=== PATIENT | female | born 2000 | race African-American/Black ===

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

== ENCOUNTER 2019-08-13 12:27 | Emergency (ER) | payer OTHER, SELFPAY ==
[2019-08-13 13:01] LABS: Urine Blood NEGATIVE (NEG); Urine Glucose NEGATIVE (NEG); Urine Protein NEGATIVE (NEG); Urine Specific Gravity 1.025 (1.005-1.030); Urine pH 5.5 (5.0-7.0)
[2019-08-13 14:18] LABS: Absolute Lymphocytes (CBC) 1.5 K/uL (0.7-4.9); Basophils % 0.5 % (0-1.3); Hematocrit 37.4 % (36.0-45.0); Lymphocytes % 28.9 % (15.3-44.8); MPV 9.2 fL (7.6-11.3)
[2019-08-13 14:57] LABS: BUN Blood Urea Nitrogen 9 mg/dL (7-18); Bicarbonate 25 mmol/L (21-32); Glucose Level 79 mg/dL (74-106); HCG, Quantitative 6473 mIU/mL (1-3); Sodium Level 139 mmol/L (136-145)
--- NOTE | 2019-08-13 15:33 | RAD REPORT ---
EXAM DESCRIPTION: US - Transvaginal OB - 08/13/2019 3:01 pm CLINICAL HISTORY: ABD PAIN, left-sided pelvic pain, positive study COMPARISON: No comparisons TECHNIQUE: Endovaginal sonography performed. FINDINGS: A normal shaped oval sac or fluid collection is seen in the fundal portion of the endometr ial cavity. If this is a gestational sac, no pole seen. No yolk sac confirmed. Size of the pres umed gestational sac would correspond to a 6 week 5 day . No hematoma or focal abnormality w ithin the endometrial cavity. No myometrial mass. Uterine size is normal. A 2.4 centimeter heterogeneous mixed echogenicity mass within the right ovary is probably a hemorrhag ic cyst. An aggressive ovarian process would not be suspected based on age in the clinical setting. N o right adnexal mass. Left ovary is normal in appearance. No left adnexal abnormality. Anechoic fluid is present in the cul de sac. IMPRESSION: A 6 week 5 day sized gestational sac is seen in the fundal uterus. No pole or yolk sac identified. No suspicious adnexal finding to suspect ectopic . Blighted ovum would be favored. Correlation can be made with serial HCG values to evaluate for possib le ongoing .
--- NOTE | 2019-08-13 15:55 | ER ---
Nurse's Notes [facility] Name: Gosia Casas Age: 18 yrs Sex: Female : 2000 Arrival Date: 08/13/2019 Time: 12:29 Bed 17 Private MD: Diagnosis: Abdominal and pelvic pain;Threatened Presentation: 08/12 12:32 Chief complaint: Patient states: reports yesterday she had sexual intercourse and sv started having LLQ pain, went to the center today and they told her to come get checked out for a tubal . Denies vaginal bleeding. Pt is 5 weeks 2 days . Coronavirus screen: Patient denies a cough. Patient denies shortness of breath or difficulty breathing. Patient denies measured and/or subjective temperature greater than 100.4F prior to today's visit. Patient denies travel on a cruise ship or to a country the [facility] currently lists as an affected area. Patient denies contact with known and/or suspected case of COVID-19. Ebola Screen: No symptoms or risks identified at this time. Risk Assessment: Do you want to hurt yourself or someone else? Patient reports no desire to harm self or others. Onset of symptoms was August 13, 2019. 12:32 Method Of Arrival: Ambulatory sv 12:32 Acuity: LEIGHA 3 sv 13:25 Initial Sepsis Screen: Does the patient meet any 2 criteria? No. Patient's initial ca1 sepsis screen is negative. Does the patient have a suspected source of infection? No. Patient's initial sepsis screen is negative. 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 - Social history:: Smoking status: Patient denies any tobacco usage or history of. Screenin:25 Abuse screen: Denies threats or abuse. Denies injuries from another. Nutritional ca1 screening: No deficits noted. Tuberculosis screening: No symptoms or risk factors identified. Fall Risk IV access (20 points). Assessment: 13:25 General: Appears in no apparent distress. comfortable, Behavior is calm, cooperative, ca1 appropriate for age. Pain: Complains of pain in left lower quadrant Pain does not radiate. Pain currently is 0 out of 10 on a pain scale. Pain began 1 day ago. Is intermittent. Neuro: Level of Consciousness is awake, alert, obeys commands, Oriented to person, place, time, situation. Cardiovascular: Heart tones S1 S2 present Capillary refill < 3 seconds Patient's skin is warm and dry. Respiratory: Airway is patent Respiratory effort is even, unlabored, Respiratory pattern is regular, symmetrical, Breath sounds are clear bilaterally. GI: Abdomen is round non-distended, Bowel sounds present X 4 quads. Abd is soft X 4 quads Abdomen is tender to palpation in left lower quadrant. : No signs and/or symptoms were reported regarding the genitourinary system. EENT: No signs and/or symptoms were reported regarding the EENT system. Derm: Skin is intact, is healthy with good turgor, Skin is. Musculoskeletal: Circulation, motion, and sensation intact. Capillary refill < 3 seconds. 14:42 Reassessment: Patient appears in no apparent distress at this time. No changes from ca1 previously documented assessment. Patient and/or family updated on plan of care and expected duration. Pain level reassessed. Patient is alert, oriented x 3, equal unlabored respirations, skin warm/dry/pink. 15:50 Reassessment: Patient appears in no apparent distress at this time. Patient is alert, ca1 oriented x 3, equal unlabored respirations, skin warm/dry/pink. Vital Signs: 12:34 BP 133 / 80; Pulse 63; Resp 16; Temp 98.7; Pulse Ox 100% ; Weight 72.12 kg; Height 5 sv ft. 8 in. (172.72 cm); 14:05 BP 130 / 69; Pulse 64; Resp 15 S; Pulse Ox 100% on R/A; ca1 14:42 BP 137 / 78; Pulse 72; Resp 17 S; Pulse Ox 100% on R/A; ca1 15:50 BP 111 / 55; Pulse 75; Resp 16 S; Pulse Ox 100% on R/A; ca1 12:34 Body Mass Index 24.18 (72.12 kg, 172.72 cm) sv ED Course: 12:29 Patient arrived in ED. ag5 12:33 Triage completed. sv 12:34 Arm band placed on. sv 13:18 Trung Thompson MD is Attending Physician. kdr 13:25 Patient has correct armband on for positive identification. Placed in gown. Bed in low ca1 position. Call light in reach. Side rails up X 1. Pulse ox on. NIBP on. Warm blanket given. 13:42 Lulu Moreira RN is Primary Nurse. ca1 13:55 Inserted Missed attempt(s): 20 gauge in right antecubital area. dh4 13:55 Inserted saline lock: 20 gauge in left antecubital area, using aseptic technique. dh4 15:01 US Transvaginal Ob In Process Unspecified. EDMS 16:19 No provider procedures requiring assistance completed. IV discontinued, intact, ca1 bleeding controlled, No redness/swelling at site. Pressure dressing applied. Administered Medications: No medications were administered Outcome: 15:54 Discharge ordered by . kdr 16:19 Discharged to home ambulatory. ca1 16:19 Condition: stable 16:19 Discharge instructions given to patient, Instructed on discharge instructions, follow up and referral plans. Demonstrated understanding of instructions, follow-up care. 16:28 Patient left the ED. ca1 Signatures: Dispatcher [employer] [facility]TN Jessenia Dawkins RN RN Trung Thompson MD MD [facility] Lulu Moreira RN RN ca1 Ángel Garcia Chris Jimenes 4 Corrections: (The following items were deleted from the chart) 14:05 13:25 Pain: Complains of pain in left lower quadrant ca1 ca1
--- NOTE | 2019-08-13 15:55 | EDPHYS ---
Physician Documentation [facility] Name: Gosia Casas Age: 18 yrs Sex: Female : 2000 Arrival Date: 08/13/2019 Time: 12:29 Bed 17 Private MD: ED Physician Trung Thompson HPI: 08/13 11:18 This 18 yrs old Black Female presents to ER via Ambulatory with complaints of Side kdr Pain, 5 wks Preg. 11:18 The patient presents with abdominal pain in the left lower quadrant. Onset: The kdr symptoms/episode began/occurred suddenly, yesterday. The symptoms do not radiate. Associated signs and symptoms: none. The symptoms are described as achy, crampy, vague. Modifying factors: The symptoms are alleviated by nothing, the symptoms are aggravated by [place]. Severity of pain: At its worst the pain was mild in the emergency department the pain has improved moderately. The patient has not experienced similar symptoms in the past. The patient has not recently seen a physician. 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 - Social history:: Smoking status: Patient denies any tobacco usage or history of. ROS: 08/13 11:18 Constitutional: Negative for fever, chills, and weight loss, Eyes: Negative for injury, kdr pain, redness, and discharge, ENT: Negative for injury, pain, and discharge, Neck: Negative for injury, pain, and swelling, Cardiovascular: Negative for chest pain, palpitations, and edema, Respiratory: Negative for shortness of breath, cough, wheezing, and pleuritic chest pain, Back: Negative for injury and pain, : Negative for injury, bleeding, discharge, and swelling, MS/Extremity: Negative for injury and deformity, Skin: Negative for injury, rash, and discoloration, Neuro: Negative for headache, weakness, numbness, tingling, and seizure activity. Psych: Negative for depression, anxiety, suicide ideation, homicidal ideation, and hallucinations, Allergy/Immunology: Negative for hives, rash, and allergies, Endocrine: Negative for neck swelling, polydipsia, polyuria, polyphagia, and marked weight changes, Hematologic/Lymphatic: Negative for swollen nodes, abnormal bleeding, and unusual bruising. Abdomen/GI: Positive for abdominal pain, nausea, Negative for black/tarry stool, rectal pain, rectal bleeding, bowel incontinence, flatulence. Exam: 11:18 Constitutional: This is a well developed, well nourished patient who is awake, alert, kdr and in no acute distress. Head/Face: Normocephalic, atraumatic. Eyes: Pupils equal round and reactive to light, extra-ocular motions intact. Lids and lashes normal. Conjunctiva and sclera are non-icteric and not injected. Cornea within normal limits. Periorbital areas with no swelling, redness, or edema. Neck: Trachea midline, no thyromegaly or masses palpated, and no cervical lymphadenopathy. Supple, full range of motion without nuchal rigidity, or vertebral point tenderness. No Meningismus. Chest/axilla: Normal chest wall appearance and motion. Nontender with no deformity. No lesions are appreciated. Cardiovascular: Regular rate and rhythm with a normal S1 and S2. No gallops, murmurs, or rubs. Normal PMI, no JVD. No pulse deficits. Respiratory: Lungs have equal breath sounds bilaterally, clear to auscultation and percussion. No rales, rhonchi or wheezes noted. No increased work of breathing, no retractions or nasal flaring. Back: No spinal tenderness. No costovertebral tenderness. Full range of motion. Skin: Warm, dry with normal turgor. Normal color with no rashes, no lesions, and no evidence of cellulitis. MS/ Extremity: Pulses equal, no cyanosis. Neurovascular intact. Full, normal range of motion. Neuro: Awake and alert, GCS 15, oriented to person, place, time, and situation. Cranial nerves II-XII grossly intact. Motor strength 5/5 in all extremities. Sensory grossly intact. Cerebellar exam normal. Normal gait. Psych: Awake, alert, with orientation to person, place and time. Behavior, mood, and affect are within normal limits. 11:18 Abdomen/GI: Inspection: abdomen appears normal, Bowel sounds: active, all quadrants, Palpation: soft, mild abdominal tenderness, in the left lower quadrant, mass, is not appreciated, rebound tenderness, is not appreciated. Vital Signs: 08/12 12:34 BP 133 / 80; Pulse 63; Resp 16; Temp 98.7; Pulse Ox 100% ; Weight 72.12 kg; Height 5 sv ft. 8 in. (172.72 cm); 14:05 BP 130 / 69; Pulse 64; Resp 15 S; Pulse Ox 100% on R/A; ca1 14:42 BP 137 / 78; Pulse 72; Resp 17 S; Pulse Ox 100% on R/A; ca1 15:50 BP 111 / 55; Pulse 75; Resp 16 S; Pulse Ox 100% on R/A; ca1 12:34 Body Mass Index 24.18 (72.12 kg, 172.72 cm) sv MDM: 15:54 Patient medically screened. kdr 08/13 11:18 Data reviewed: vital signs, nurses notes, lab test result(s), radiologic studies. kdr Counseling: I had a detailed discussion with the patient and/or guardian regarding: the historical points, exam findings, and any diagnostic results supporting the discharge/admit diagnosis, lab results, radiology results, the need for outpatient follow up. 08/12 12:51 Order name: Urine Dipstick--Ancillary (enter results); Complete Time: 13:20 em1 08/12 12:51 Order name: Urine --Ancillary (enter results); Complete Time: 13:20 em1 08/12 13:20 Order name: Quantitative Hcg; Complete Time: 15:52 kdr 08/12 13:20 Order name: Abo/rh Typing; Complete Time: 15:52 kdr 08/12 13:20 Order name: Basic Metabolic Panel; Complete Time: 15:52 kdr 08/12 13:20 Order name: CBC with Diff; Complete Time: 15:52 kdr 08/12 12:54 Order name: US Transvaginal Ob; Complete Time: 15:52 sv 08/12 13:20 Order name: IV Saline Lock; Complete Time: 13:55 kdr 08/12 13:20 Order name: Labs collected and sent; Complete Time: 13:55 kdr 08/12 13:20 Order name: NPO; Complete Time: 13:55 kdr 08/12 13:20 Order name: Urine Dipstick-Ancillary (obtain specimen); Complete Time: 13:29 kdr 08/12 15:10 Order name: Labs - recollect needed: collect abo/rh no charge; Complete Time: 15:37 bd 08/12 15:50 Order name: ABO/RH no charge; Complete Time: 15:52 EDMS Administered Medications: No medications were administered Disposition: 08/13/19 15:54 Discharged to Home. Impression: Abdominal and pelvic pain, Threatened . - Condition is Stable. - Discharge Instructions: Abdominal Pain, Adult, [id number], Threatened Miscarriage, [id number]. - Medication Reconciliation Form, Thank You Letter form. - Follow up: Private Physician; When: 2 - 3 days; Reason: If symptoms return, Further diagnostic work-up, Recheck today's complaints, Continuance of care, Re-evaluation by your physician. - Problem is new. - Symptoms have improved. Signatures: Dispatcher [employer] EDMS penelope DebbieJessenia Esparza RN RN sv Trung Thompson MD MD kdr Lillie, MYLENE Lawson RN ca1 Corrections: (The following items were deleted from the chart) 08/12 16:28 15:54 08/13/2019 15:54 Discharged to Home. Impression: Abdominal and pelvic pain; ca1 Threatened . Condition is Stable. Forms are Medication Reconciliation Form, Thank You Letter, Antibiotic Education, Prescription Opioid Use. Follow up: Private Physician; When: 2 - 3 days; Reason: If symptoms return, Further diagnostic work-up, Recheck today's complaints, Continuance of care, Re-evaluation by your physician. Problem is new. Symptoms have improved. kdr
[2019-08-13 16:34] VITALS: TEMP 98.7; O2SAT 100
[2019-08-13 16:38] VITALS: BP 111/55
== END 2019-08-13 16:28 | disposition home or self-care (01) ==
LOC: ER 12:27
DX: O20.0 Threatened abortion (principal); Z3A.01 Less than 8 weeks gestation of pregnancy
CPT/HCPCS: 36415; 76817; 80048; 81003; 81025; 84702; 85025; 86900; 86901; 99284

== ENCOUNTER 2019-10-12 00:01 | Emergency (ER) | payer OTHER ==
[2019-10-12 00:59] LABS: Urine Blood 3+ (NEG); Urine Glucose NEGATIVE (NEG); Urine Protein 2+ (NEG); Urine Specific Gravity 1.025 (1.005-1.030)
[2019-10-12 01:01] LABS: Basophils % 0.5 % (0-1.3); Hematocrit 35.8 % (36.0-45.0); Lymphocytes % 27.7 % (15.3-44.8); RBC Red Blood Cell Count 4.04 M/uL (3.86-4.86)
[2019-10-12 01:16] LABS: Urine Amorphous Sediment 2+ /HPF (NONE SEEN); Urine Bacteria >50 /HPF (<20); Urine Culture Reflex Order NOT NEEDED; Urine Mucus 2+ /HPF (NONE SEEN)
[2019-10-12 01:30] LABS: BUN Blood Urea Nitrogen 14 mg/dL (7-18); Bicarbonate 25 mmol/L (21-32); Glucose Level 87 mg/dL (74-106); HCG, Quantitative 21194 mIU/mL (1-3); Potassium 3.7 mmol/L (3.5-5.1); Sodium Level 139 mmol/L (136-145)
--- NOTE | 2019-10-12 01:53 | ER ---
Nurse's Notes [facility] Name: Gosia Casas Age: 18 yrs Sex: Female : 2000 Arrival Date: 10/12/2019 Time: 00:05 Bed 19 Private MD: Diagnosis: Urinary tract infection, site not specified; state Presentation: 10/11 00:23 Chief complaint: Patient states: she is 3 months went to the bathroom about 10 bb minutes ago and noticed some brownish blood in her urine denies abdominal pain and states she has had no other difficulties with her . Coronavirus screen: At this time, the client does not indicate any symptoms associated with coronavirus-19. Ebola Screen: No symptoms or risks identified at this time. Initial Sepsis Screen: Does the patient meet any 2 criteria? No. Patient's initial sepsis screen is negative. Does the patient have a suspected source of infection? No. Patient's initial sepsis screen is negative. Risk Assessment: Do you want to hurt yourself or someone else? Patient reports no desire to harm self or others. Onset of symptoms was October 12, 2019. 00:23 Method Of Arrival: Ambulatory bb 00:23 Acuity: LEIGHA 3 bb Triage Assessment: 00:26 General: Appears in no apparent distress. Behavior is calm, cooperative. Pain: Denies bb pain. 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 - Social history:: Smoking status: Patient denies any tobacco usage or history of. Screenin:31 Abuse screen: Denies threats or abuse. Denies injuries from another. Nutritional wh screening: No deficits noted. Tuberculosis screening: No symptoms or risk factors identified. Fall Risk None identified. Assessment: 00:30 General: Appears in no apparent distress. Behavior is calm, cooperative, appropriate for age. Pain: Denies pain. Neuro: Level of Consciousness is awake, alert, obeys commands, Oriented to person, place, time, situation, Appropriate for age. Cardiovascular: Capillary refill < 3 seconds. Respiratory: Airway is patent Respiratory effort is even, unlabored, Respiratory pattern is regular, symmetrical. GI: Abdomen is flat, non-distended. : Reports discharge, brownish urine. EENT: No signs and/or symptoms were reported regarding the EENT system. Derm: Skin is intact, is healthy with good turgor, Skin is pink, warm \T\ dry. normal. Musculoskeletal: Circulation, motion, and sensation intact. 01:15 Reassessment: Patient appears in no apparent distress at this time. No changes from previously documented assessment. Patient and/or family updated on plan of care and expected duration. Pain level reassessed. Patient is alert, oriented x 3, equal unlabored respirations, skin warm/dry/pink. 02:06 Reassessment: Patient appears in no apparent distress at this time. No changes from previously documented assessment. Patient and/or family updated on plan of care and expected duration. Pain level reassessed. Patient is alert, oriented x 3, equal unlabored respirations, skin warm/dry/pink. Vital Signs: 00:23 BP 129 / 78; Pulse 69; Resp 14 S; Temp 98.6(O); Pulse Ox 100% on R/A; Weight 73.48 kg bb (R); Height 5 ft. 8 in. (172.72 cm) (R); Pain 0/10; 01:15 BP 133 / 82; Pulse 73; Resp 18; Pulse Ox 100% on R/A; 02:06 BP 116 / 78; Pulse 71; Resp 18; Pulse Ox 100% on R/A; 00:23 Body Mass Index 24.63 (73.48 kg, 172.72 cm) Vitals: 01:15 Heart Tones 164 . ED Course: 00:05 Patient arrived in ED. ag3 00:15 Long Johnson is Primary Nurse. wh 00:17 Kanu Weems PA is PHCP. cp 00:17 Jorge Arango MD is Attending Physician. cp 00:25 Triage completed. bb 00:26 Arm band placed on Patient placed in an exam room, on a stretcher, on pulse oximetry. bb 00:31 Patient has correct armband on for positive identification. Placed in gown. Bed in low position. Call light in reach. Side rails up X 1. Pulse ox on. NIBP on. 00:45 Inserted saline lock: 20 gauge in right antecubital area, using aseptic technique. Blood collected. 02:08 No provider procedures requiring assistance completed. IV discontinued, intact, bleeding controlled, No redness/swelling at site. Administered Medications: No medications were administered Outcome: 01:52 Discharge ordered by . karin 02:08 Discharged to home ambulatory. 02:08 Condition: stable 02:08 Discharge instructions given to patient, Instructed on discharge instructions, follow up and referral plans. medication usage, POC Demonstrated understanding of instructions, follow-up care, medications, POC Prescriptions given X 1. 02:08 Patient left the ED. Signatures: Margie Lipscomb RN RN Kanu Brenner PA PA cp [place], Winsy Renuka Griffith ag3
--- NOTE | 2019-10-12 01:53 | EDPHYS ---
Physician Documentation [facility] [place] Name: Gosia Casas Age: 18 yrs Sex: Female : 2000 Arrival Date: 10/12/2019 Time: 00:05 Bed 19 Private MD: ED Physician Jorge Arango HPI: 10/11 00:45 This 18 yrs old Black Female presents to ER via Ambulatory with complaints of Vaginal cp Discharge. 00:45 The patient presents with urinary symptoms, brownish discharge in urine. Onset: The cp symptoms/episode began/occurred today. Associated signs and symptoms: Pertinent negatives: constipation, diarrhea, dysuria, fever, vaginal bleeding, vaginal discharge. Severity of symptoms: in the emergency department the symptoms are unchanged. The patient is sexually active, reportedly has a single partner. The patient's method of control includes nothing. 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 - Social history:: Smoking status: Patient denies any tobacco usage or history of. ROS: 00:50 Constitutional: Negative for body aches, chills, fever, poor PO intake. cp 00:50 Respiratory: Negative for cough, shortness of breath, wheezing. cp 00:50 Abdomen/GI: Negative for abdominal pain, nausea, vomiting, and diarrhea, diarrhea, constipation, black/tarry stool, rectal bleeding. 00:50 : Positive for brown colored discharge, Negative for pelvic pain, flank pain, burning with urination, vaginal bleeding, vaginal discharge. 00:50 Skin: Negative for rash. 00:50 Neuro: Negative for headache. 00:50 All other systems are negative. Exam: 00:55 Constitutional: The patient appears in no acute distress, alert, awake, comfortable, cp non-toxic, well developed, well nourished. 00:55 Head/Face: Normocephalic, atraumatic. cp 00:55 Eyes: Periorbital structures: appear normal, Conjunctiva: normal, no exudate, no injection, Sclera: no appreciated abnormality, Lids and lashes: appear normal, bilaterally. 00:55 ENT: External ear(s): are unremarkable, Nose: is normal, Mouth: Lips: moist, Oral mucosa: moist, Posterior pharynx: Airway: no evidence of obstruction, patent. 00:55 Chest/axilla: Inspection: normal. 00:55 Cardiovascular: Rate: normal. 00:55 Respiratory: the patient does not display signs of respiratory distress, Respirations: normal. 00:55 Abdomen/GI: Inspection: gravid appearance, is noted, Bowel sounds: active, all quadrants, Palpation: abdomen is soft and non-tender, in all quadrants. 00:55 Back: pain, is absent, ROM is normal. 01:45 : Pelvic Exam: The exam is refused by the patient/guardian. The risks and cp consequences are understood by the patient. Vital Signs: 00:23 BP 129 / 78; Pulse 69; Resp 14 S; Temp 98.6(O); Pulse Ox 100% on R/A; Weight 73.48 kg bb (R); Height 5 ft. 8 in. (172.72 cm) (R); Pain 0/10; 01:15 BP 133 / 82; Pulse 73; Resp 18; Pulse Ox 100% on R/A; wh 02:06 BP 116 / 78; Pulse 71; Resp 18; Pulse Ox 100% on R/A; wh 00:23 Body Mass Index 24.63 (73.48 kg, 172.72 cm) bb MDM: 00:28 Patient medically screened. cp 01:00 Differential diagnosis: pelvic inflammatory disease, urinary tract infection, vaginosis.cp 01:50 Data reviewed: vital signs, nurses notes, lab test result(s). cp 01:50 Counseling: I had a detailed discussion with the patient and/or guardian regarding: the cp historical points, exam findings, and any diagnostic results supporting the discharge/admit diagnosis, lab results, the need for outpatient follow up, an OB/Gyne specialist, to return to the emergency department if symptoms worsen or persist or if there are any questions or concerns that arise at home. ED course: Review of records shows patient had US in August 2019 that showed IUP. 10/11 00:40 Order name: Quantitative Hcg; Complete Time: 01:37 cp 10/11 01:38 Interpretation: Reviewed. cp 10/11 00:40 Order name: Abo/rh Typing; Complete Time: 01:13 cp 10/11 00:40 Order name: Basic Metabolic Panel; Complete Time: 01:37 cp 10/11 01:38 Interpretation: Normal except: CL 109. cp 10/11 00:40 Order name: CBC with Diff; Complete Time: 01:13 cp 10/11 00:40 Order name: Urine Microscopic Only; Complete Time: 01:37 cp 10/11 01:38 Interpretation: Normal except: UWBC 10-20; URBC 10-20; UBACT >50; SQEPI 10-20; AMORPH cp 2+. 10/11 00:40 Order name: Urine Culture cp 10/11 00:40 Order name: Urine Test (obtain specimen); Complete Time: 00:52 cp 10/11 00:40 Order name: IV Saline Lock; Complete Time: 00:52 cp 10/11 00:40 Order name: Labs collected and sent; Complete Time: 00:52 cp 10/11 00:40 Order name: NPO; Complete Time: 00:52 cp 10/11 00:40 Order name: Urine Dipstick-Ancillary (obtain specimen); Complete Time: 00:52 cp 10/11 00:49 Order name: Urine --Ancillary (enter results); Complete Time: 01:13 tt3 10/11 00:49 Order name: Urine Dipstick--Ancillary (enter results); Complete Time: 01:13 tt3 10/11 00:58 Order name: Heart Tones; Complete Time: 01:14 cp Administered Medications: No medications were administered Disposition: 02:15 Chart complete. cp Disposition: 10/12/19 01:52 Discharged to Home. Impression: Urinary tract infection, site not specified, state. - Condition is Stable. - Discharge Instructions: and Urinary Tract Infection. - Prescriptions for Macrobid 100 mg Oral Capsule - take 1 capsule by ORAL route every 12 hours for 7 days; 14 capsule. - Medication Reconciliation Form, Thank You Letter, Antibiotic Education, Prescription Opioid Use form. - Follow up: Private Physician; When: 1 - 2 days; Reason: Worsening of condition. - Problem is new. - Symptoms have improved. Addendum: 10/13/2019 04:30 Co-signature as Attending Physician, Jorge Arango MD I agree with the assessment and t w4 plan of care. Signatures: Dispatcher [employer] EDMargie Gomez, RN RN Kanu Brenner PA PA [place] Jorge Arango MD MD tw4 Corrections: (The following items were deleted from the chart) 10/11 01:53 01:52 10/12/2019 01:52 Discharged to Home. Impression: Urinary tract infection, site cp not specified. Condition is Stable. Forms are Medication Reconciliation Form, Thank You Letter, Antibiotic Education, Prescription Opioid Use. Follow up: Private Physician; When: 1 - 2 days; Reason: Worsening of condition. Problem is new. Symptoms have improved. cp 02:08 01:53 10/12/2019 01:52 Discharged to Home. Impression: Urinary tract infection, site wh not specified; state. Condition is Stable. Discharge Instructions: and Urinary Tract Infection. Forms are Medication Reconciliation Form, Thank You Letter, Antibiotic Education, Prescription Opioid Use. Follow up: Private Physician; When: 1 - 2 days; Reason: Worsening of condition. Problem is new. Symptoms have improved. cp
[2019-10-12 07:40] VITALS: BP 116/78; TEMP 98.6; O2SAT 100
== END 2019-10-12 02:08 | disposition home or self-care (01) ==
LOC: ER 00:01
DX: O23.41 Unspecified infection of urinary tract in pregnancy, first trimester (principal); Z3A.13 13 weeks gestation of pregnancy
CPT/HCPCS: 36415; 80048; 81003; 81015; 81025; 84702; 85025; 86900; 86901; 87086; 87088; 99284

== ENCOUNTER 2019-10-12 13:04 | Emergency (ER) | payer OTHER ==
--- NOTE | 2019-10-12 15:55 | EDPHYS ---
Physician Documentation [facility] Name: Gosia Casas Age: 18 yrs Sex: Female : 2000 Arrival Date: 10/12/2019 Time: 13:08 Bed 24 Private MD: ED Physician Ren Martinez HPI: 10/11 15:52 This 18 yrs old Black Female presents to ER via Ambulatory with complaints of Vaginal pm1 Bleeding, 3 MTHS PREG. 15:52 The patient presents with vaginal bleeding that is light, reports using 0 pads or pm1 tampons per day, blood present with wiping after urination. Onset: The symptoms/episode began/occurred today. Modifying factors: The symptoms are alleviated by nothing, the symptoms are aggravated by urinating. Associated signs and symptoms: Pertinent positives: vaginal bleeding, Pertinent negatives: dysuria, fever, abdominal pain, flank pain, n/v/d. Severity of symptoms: in the emergency department the symptoms are unchanged. The patient is sexually active. The patient has not experienced similar symptoms in the past. The patient has been recently seen at the [facility] Emergency Department, today, for similar complaints diagnosed with UTI and discharge home with abx. PATIENT SITTER: 15:52 1, Full Term 0, Living 0 pm1 Historical: - Allergies: 13:20 No Known Allergies; ll1 - PSHx: 13:20 None; ll1 - Immunization history:: Flu vaccine is not up to date. - Social history:: Smoking status: Patient denies any tobacco usage or history of. Patient/guardian denies using alcohol, street drugs, IV drugs. ROS: 15:52 Positive for vaginal bleeding, Negative for urinary symptoms. pm1 15:52 Constitutional: Negative for fever, chills, and weight loss, Cardiovascular: Negative for chest pain, palpitations, and edema, Respiratory: Negative for shortness of breath, cough, wheezing, and pleuritic chest pain, Abdomen/GI: Negative for abdominal pain, nausea, vomiting, diarrhea, and constipation, Back: Negative for injury and pain, MS/Extremity: Negative for injury and deformity, Skin: Negative for injury, rash, and discoloration, Neuro: Negative for headache, weakness, numbness, tingling, and seizure. Exam: 15:52 Constitutional: This is a well developed, well nourished patient who is awake, alert, pm1 and in no acute distress. Head/Face: Normocephalic, atraumatic. 15:52 Cardiovascular: Exam negative for acute changes, Rate: normal, Rhythm: regular, Pulses: no pulse deficits are appreciated, Edema: is not appreciated. 15:52 Respiratory: Exam negative for acute changes, respiratory distress, shortness of breath. 15:52 Abdomen/GI: Exam negative for acute changes, Inspection: abdomen appears normal, Palpation: abdomen is soft and non-tender, in all quadrants. 15:52 Back: Exam negative for acute changes, pain, is absent, ROM is normal. 15:52 MS/ Extremity: Pulses equal, no cyanosis. Neurovascular intact. Full, normal range pm1 of motion. 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 15:52 Neuro: Exam negative for acute changes, Orientation: is normal, Mentation: is normal, Motor: is normal, moves all fours, Sensation: is normal, no obvious gross deficits. Vital Signs: 13:18 Pulse 84; Resp 16; Temp 98.5; Pulse Ox 100% ; Weight 73.48 kg; Height 5 ft. 8 in. ll1 (172.72 cm); Pain 0/10; 13:39 BP 120 / 76; ll1 13:18 Body Mass Index 24.63 (73.48 kg, 172.72 cm) ll1 MDM: 14:33 Patient medically screened. pm1 15:52 Data reviewed: vital signs. Data interpreted: Pulse oximetry: on room air is 100 %. pm1 Interpretation: normal. Counseling: I had a detailed discussion with the patient and/or guardian regarding: the historical points, exam findings, and any diagnostic results supporting the discharge/admit diagnosis, the need for outpatient follow up, for definitive care, to return to the emergency department if symptoms worsen or persist or if there are any questions or concerns that arise at home. 15:56 ED course: Discussed with provider that discharged her early this AM. Patient refused pm1 pelvic examination at that time. 15:57 ED course: No blood or clot present in the vaginal vault on examination. Threaten pm1 does not appear present. Patient diagnosed with UTI this AM and prescribed abx. Patient's blood present with wiping after urinating is likely from UTI. 10/11 14:46 Order name: Pelvic Exam Setup; Complete Time: 15:19 pm1 Administered Medications: No medications were administered Disposition: 17:53 Co-signature as Attending Physician, Ren Martinez MD. ma2 Disposition: 10/12/19 15:53 Discharged to Home. Impression: Urinary tract infection, site not specified. - Condition is Stable. - Discharge Instructions: and Urinary Tract Infection. - Medication Reconciliation Form, Thank You Letter, Antibiotic Education, Prescription Opioid Use form. - Follow up: Emergency Department; When: As needed; Reason: Worsening of condition. Follow up: Private Physician; When: 48 Hours; Reason: Recheck today's complaints, Continuance of care, Repeat Beta-HCG (48 Hours), Re-evaluation by your physician. - Problem is new. - Symptoms have improved. Signatures: Gavi Garcia RN RN ss Venkata Garcia NP HEALTH POLICY ANALYST pm1 Ren Martinez MD MD ma2 Nuris Baker RN RN ll1 Corrections: (The following items were deleted from the chart) 16:03 15:53 10/12/2019 15:53 Discharged to Home. Impression: Urinary tract infection, site ss not specified. Condition is Stable. Forms are Medication Reconciliation Form, Thank You Letter, Antibiotic Education, Prescription Opioid Use. Follow up: Emergency Department; When: As needed; Reason: Worsening of condition. Follow up: Private Physician; When: 48 Hours; Reason: Recheck today's complaints, Continuance of care, Repeat Beta-HCG (48 Hours), Re-evaluation by your physician. Problem is new. Symptoms have improved. pm1
--- NOTE | 2019-10-12 15:55 | ER ---
Nurse's Notes [facility] [place] Name: Gosia Casas Age: 18 yrs Sex: Female : 2000 Arrival Date: 10/12/2019 Time: 13:08 Bed 24 Private MD: Diagnosis: Urinary tract infection, site not specified Presentation: 10/11 13:18 Coronavirus screen: Client denies travel out of the [place] in the last 14 days. At this ll1 time, the client does not indicate any symptoms associated with coronavirus-19. Ebola Screen: Patient denies travel to an Ebola-affected area in the 21 days before illness onset. Initial Sepsis Screen: Does the patient meet any 2 criteria? No. Patient's initial sepsis screen is negative. Risk Assessment: Do you want to hurt yourself or someone else? Patient reports no desire to harm self or others. Onset of symptoms was October 11, 2019. 13:18 Method Of Arrival: Ambulatory ll1 13:18 Acuity: LEIGHA 4 ll1 13:20 Chief complaint: Patient states: Here early this morning for brown vaginal discharge. ll1 14 weeks . G1 , P0. States the vaginal bleeding got slightly worse this afternoon. No pain. No heavy bleeding or clots. Prescribed antibiotic for UTI. LAY BROTHER: 15:52 1, Full Term 0, Living 0 pm1 Historical: - Allergies: 13:20 No Known Allergies; ll1 - PSHx: 13:20 None; ll1 - Immunization history:: Flu vaccine is not up to date. - Social history:: Smoking status: Patient denies any tobacco usage or history of. Patient/guardian denies using alcohol, street drugs, IV drugs. Screenin:10 Abuse screen: Denies threats or abuse. Denies injuries from another. Nutritional ss screening: No deficits noted. Tuberculosis screening: Never had TB. Fall Risk None identified. Assessment: 15:10 General: Appears in no apparent distress. comfortable, Behavior is calm, cooperative. ss Pain: Denies pain. Neuro: Level of Consciousness is awake, alert, obeys commands, Oriented to person, place, time, situation. Cardiovascular: Capillary refill < 3 seconds is brisk in bilateral fingers. Respiratory: Airway is patent Respiratory effort is even, unlabored, Respiratory pattern is regular, symmetrical, Denies cough, shortness of breath. GI: No signs and/or symptoms were reported involving the gastrointestinal system. : Reports vaginal bleeding that is brown spotting this morning, is slightly heavier and more red later in the day. Seen and evaluated in ER this morning for same complaint. EENT: Nares are clear Oral mucosa is moist. Derm: Skin is intact, is healthy with good turgor, Skin is Skin is pink, warm \T\ dry. normal. Musculoskeletal: Circulation, motion, and sensation intact. Range of motion: intact in all extremities, Swelling absent. 15:44 Reassessment: assisted provider with pelvic exam. Patient tolerated well. Vital Signs: 13:18 Pulse 84; Resp 16; Temp 98.5; Pulse Ox 100% ; Weight 73.48 kg; Height 5 ft. 8 in. ll1 (172.72 cm); Pain 0/10; 13:39 BP 120 / 76; ll1 13:18 Body Mass Index 24.63 (73.48 kg, 172.72 cm) ll1 ED Course: 13:08 Patient arrived in ED. bp1 13:19 Triage completed. ll1 13:21 Arm band placed on Patient notified of wait time. ll1 14:33 Venkata Garcia NP is PHCP. pm1 14:33 Ren Martinez MD is Attending Physician. pm1 15:10 Patient has correct armband on for positive identification. Bed in low position. Call ss light in reach. 15:19 Gavi Garcia, MYLENE is Primary Nurse. ss 16:03 Assist provider with pelvic exam: Set up pelvic tray. Performed by Venkata Garcia NP Patient tolerated well. Patient did not have IV access during this emergency room visit. Administered Medications: No medications were administered Outcome: 15:53 Discharge ordered by . pm1 16:03 Discharged to home ambulatory. ss 16:03 Condition: good 16:03 Discharge instructions given to patient, Instructed on discharge instructions, follow up and referral plans. Demonstrated understanding of instructions, follow-up care. 16:03 Patient left the ED. Signatures: Gavi Garcia RN RN Venkata Garcia NP STOCK SPECULATOR pm1 Nuris Baker RN RN ll1 Isabel Chen bp1 Corrections: (The following items were deleted from the chart) 13:21 13:20 Chief complaint: Patient states: Here early this morning for brown vaginal ll1 discharge. 14 weeks . G1 , P0. States the vaginal bleeding got slightly worse this afternoon. No pain. No heavy bleeding or clots. ll1
[2019-10-12 16:11] VITALS: TEMP 98.5; O2SAT 100
[2019-10-12 16:12] VITALS: BP 120/76
== END 2019-10-12 16:03 | disposition home or self-care (01) ==
LOC: ER 13:04
DX: O23.41 Unspecified infection of urinary tract in pregnancy, first trimester (principal); Z3A.13 13 weeks gestation of pregnancy
CPT/HCPCS: 99283

== ENCOUNTER 2020-02-19 | Emergency (ER) | payer SELFPAY ==
--- NOTE | 2020-02-19 02:14 | ER ---
Nurse's Notes [facility] [place] Name: Gosia Casas Age: 19 yrs Sex: Female : 2000 Arrival Date: 02/19/2020 Time: 01:35 Bed Waiting Private MD: Diagnosis: Presentation: 02/18 02:05 Chief complaint: Patient states: nausea and vomiting x 1, started today. Vomit was dm5 brown and then bright red. Pt is 8 months . Denies any pain. Coronavirus screen: Client denies travel out of the [place] in the last 14 days. headache, nausea, Client presents with at least one sign or symptom that may indicate coronavirus-19. Standard/surgical mask placed on the client. Ebola Screen: Patient negative for fever greater than or equal to 101.5 degrees Fahrenheit, and additional compatible Ebola Virus Disease symptoms Patient denies exposure to infectious person. Patient denies travel to an Ebola-affected area in the 21 days before illness onset. No symptoms or risks identified at this time. Initial Sepsis Screen: Does the patient meet any 2 criteria? No. Patient's initial sepsis screen is negative. Does the patient have a suspected source of infection? No. Patient's initial sepsis screen is negative. Risk Assessment: Do you want to hurt yourself or someone else? Patient reports no desire to harm self or others. Onset of symptoms was February 18, 2020. 02:05 Method Of Arrival: Ambulatory dm5 02:05 Acuity: LEIGHA 3 dm5 Vital Signs: 02:05 BP 129 / 76; Pulse 80; Resp 18; Temp 97.5(TE); Pulse Ox 99% on R/A; Weight 87.54 kg; dm5 Height 5 ft. 8 in. (172.72 cm); Pain 0/10; 02:05 Body Mass Index 29.35 (87.54 kg, 172.72 cm) dm5 ED Course: :35 Patient arrived in ED. cl3 02:12 Triage completed. dm5 Administered Medications: No medications were administered Outcome: 02:13 Patient left the ED. dm5 Signatures: Rosa Gabriel RN RN dm5 Wali Baker cl3
== END 2020-02-19 02:13 | disposition left against medical advice (07) ==
DX: Z53.21 Procedure and treatment not carried out due to patient leaving prior to being seen by health care provider (principal)
CPT/HCPCS: 99281

== ENCOUNTER 2021-09-17 14:55 | Emergency (ER) | payer OTHER ==
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
[2021-09-17 17:31] VITALS: TEMP 98; O2SAT 100
[2021-09-17 17:34] VITALS: BP 119/58
== END 2021-09-17 17:25 | disposition home or self-care (01) ==
LOC: ER 14:55
DX: S80.02XA Contusion of left knee, initial encounter (principal)
CPT/HCPCS: 99283